=== PATIENT | female | born 1965 ===

== ENCOUNTER 2023-09-16 04:53 | Outpatient (CLI) | payer SELFPAY ==
[2023-09-16] MEDS: Levalbuterol HFA 15 GM INH 4 PUFF IH (16:42)
[2023-09-16] MEDS: Inhaler, Assist Device 1 EACH MC (16:42)
--- NOTE | 2023-09-18 14:40 | W.PFT ---
Date of service: 09/16/23 Time of Service: 15:07 Pulmonary Function Test Result Indications: COPD Interpretation Spirometry: There is no airflow limitation. No bronchodilator response. Lung Volumes: Normal lung volumes Diffusion Capacity: Reduced diffusion Airway Pressure: Normal airways resistance Impression Isolated decreased diffusion. The differential for this includes: emphysema, interstitial lung disease or pulmonary vascular disease (pulmonary hypertension). Clinical Correlation therefore is recommended.
== END 2023-09-16 04:54 | disposition home or self-care (01) ==
LOC: RT 04:54
PROVIDERS: PCP Nurse Practitioner Family; Visit Provider Nurse Practitioner Family
DX: J44.9 Chronic obstructive pulmonary disease, unspecified (principal)
CPT/HCPCS: 94060; 94726; 94729